=== PATIENT | female | born 1960 | race African-American/Black ===

== ENCOUNTER 2020-09-13 21:46 | Emergency (ER) | payer MEDICARE ==
[~2020-09-13] VITALS: Ht 160 cm; Wt 83.6 kg
[2020-09-13] MEDS ORDERED: IV NORMAL SALINE 1000ML BAG 1,000 ML IV ONE (22:15)
[2020-09-13] MEDS ORDERED: KETOROLAC 15 MG/ML VIAL. IVP ONE (22:30)
--- NOTE | 2020-09-13 23:01 | RAD ---
Single view chest dated 09/13/2020. No comparison available. CLINICAL INDICATION: Cough. FINDINGS: Single upright portable exam performed. Heart and mediastinal contours within normal limits. Lungs ar e clear. No consolidation or pleural effusion. No pneumothorax. IMPRESSION: No acute radiographic abnormality. Electronically signed by: Jacoby Manuel MD (09/13/2020 10:58 PM) [facility]
--- NOTE | 2020-09-13 23:06 | PHYS DOC ---
Past Medical History Past Medical History: Diabetes-Type II, Hypertension Past Surgical History: No Surgical History, Smoking Status: Former Smoker Alcohol Use: Occasionally Drug Use: None, Marijuana General Adult EDM: Chief Complaint: MULTIPLE COMPLAINTS HPI: HPI: Patient is a 59-year-old female who presents to emergency department with complaints of a cough, headache, and dizziness. She states her symptoms began in March after she had COVID-19. She describes the cough is dry and persistent. She has tried several qjcd-hkj-njujwmw medications with no relief. She denies any sputum production, fever or chills, or chest pain. She describes the headache as a bandlike tightness that is worse with stressors. She is currently under a lot of stress to her due to her passing away. She is a former smoker but denies any history of asthma or COPD. Review of Systems: Review of Systems: Constitutional: Denies fever or chills Eyes: Denies redness or eye pain HENT: Admits nasal congestion or sore throat Respiratory: Admits cough, denies shortness of breath Cardiovascular: Denies chest pain or palpitations GI: Denies abdominal pain, nausea, or vomiting : Denies dysuria or hematuria Musculoskeletal: Denies back pain or joint pain Integument: Denies rash or skin lesions Neurologic: Admits dizziness and headache, denies focal weakness or sensory changes Complete systems were reviewed and found to be within normal limits, except as documented in this note. Current Medications: Current Medications Medications (Trade) Dose Ordered Sig/[facility] Start Time Stop Time Status Last Admin Dose Admin Ketorolac Tromethamine (Toradol 15mg Vial) 15 mg 1X ONCE 09/13/20 22:30 09/13/20 22:32 DC Sodium Chloride 1,000 ml @ 1,000 mls/hr 1X ONCE 09/13/20 22:15 09/13/20 23:14 Allergies: Allergies: Allergies Coded Allergies Type Severity Reaction Last Updated Verified No Known Drug Allergies 09/13/20 No Physical Exam: PE: Constitutional: Well developed, well nourished, no acute distress, non-toxic appearance HENT: Normocephalic, atraumatic Eyes: PERRL, EOMI, conjunctiva normal, no discharge Neck: Normal range of motion, no tenderness, supple Lungs & Thorax: No respiratory distress, equal chest rise and fall Abdomen: Soft, no tenderness Skin: Warm, dry, no erythema, no rash Back: No tenderness, no CVA tenderness Extremities: No tenderness, ROM intact, no edema Neurologic: Alert and oriented X 3, normal motor function, normal sensory function, no focal deficits noted Psychologic: Affect normal, judgment normal EKG: EKG: @2310 NSR at 85bpm, NO ST elevation, QRS 78ms, QT/QTc 374/451ms Radiology/Procedures: Radiology/Procedures: [] Course & Med Decision Making: Course & Med Decision Making Patient is a 59-year-old female presenting with cough. Plan to evaluate with chest x-ray and labs and treat her anxiety symptoms with Ativan. Pertinent Labs and Imaging studies reviewed. (See chart for details) Patient stable for discharge with outpatient follow-up with PCP. Discussed findings and plan with patient, who acknowledges understanding and agreement. Dragon Disclaimer: Dragon Disclaimer: This electronic medical record was generated, in whole or in part, using a voice recognition dictation system. Departure Departure Impression: Primary Impression: Dizziness Additional Impressions: Hypokalemia UTI (urinary tract infection) Qualified Codes: N30.00 - Acute cystitis without hematuria Disposition: 01 HOME SELF CARE/HOMELESS Condition: STABLE Referrals: Susanna JEAN MD (PCP) Patient Instructions: Dizziness, Xviv-vu-Pomv, Hypokalemia, Potassium Content of Foods, Urinary Tract Infection, Axfk-oi-Fvzs Additional Instructions: Please call [facility] at to seek help for your mental health and/or drug/alcohol abuse. Scripts Cephalexin (CEPHALEXIN) 500 Mg Tablet 1 TAB PO TID for 7 Days, #21 TAB Prov: SABINA CONNELLY DO 09/14/20 Diazepam (VALIUM) 2 Mg Tablet 2 MG PO TID PRN for DIZZINESS, #10 TAB Prov: SABINA CONNELLY DO 09/14/20 SABINA CONNELLY DO Sep 13, 2020 23:06
[2020-09-13] MEDS ORDERED: diazePAM 2 MG TABLET PO ONE (23:15)
[2020-09-13 23:52] LABS: BASO # 0.1 x10^3/uL (0.0-0.2); BASO % 1 % (0-3); EOS # 0.1 x10^3/uL (0.0-0.7); EOS % 1 % (0-3); HEMATOCRIT 39.3 % (36.0-47.0); HEMOGLOBIN 13.3 g/dL (12.0-15.5); LYMPH # 1.5 x10^3/uL (1.0-4.8); LYMPH % 23 % (24-48); MEAN CORPUSCULAR HEMOGLOBIN 32 pg (25-35); MEAN CORPUSCULAR HGB CONC 34 g/dL (31-37); MEAN CORPUSCULAR VOLUME 93 fL (79-100); MONO # 0.4 x10^3/uL (0.0-1.1); MONO % 6 % (0-9); NEUT # 4.7 x10^3/uL (1.8-7.7); NEUT % 70 % (31-73); PLATELET COUNT 300 x10^3/uL (140-400); RED BLOOD COUNT 4.22 x10^6/uL (3.50-5.40); WHITE BLOOD COUNT 6.8 x10^3/uL (4.0-11.0)
[2020-09-14 00:02] LABS: BILIRUBIN,URINE NEGATIVE (NEG); CLARITY,URINE CLOUDY; COLOR,URINE YELLOW; NITRITE,URINE NEGATIVE (NEG); PROTEIN,URINE NEGATIVE (NEG-TRACE); UROBILINOGEN,URINE 0.2 mg/dL (0.2 mg/dL)
[2020-09-14 00:03] LABS: CALCIUM 9.6 mg/dL (8.5-10.1); CREATININE 0.9 mg/dL (0.6-1.0)
[2020-09-14 00:09] LABS: ALBUMIN 3.8 g/dL (3.4-5.0); ALBUMIN/GLOBULIN RATIO 0.9 (1.0-1.7); MAGNESIUM 2.1 mg/dL (1.8-2.4); TOTAL BILIRUBIN 0.6 mg/dL (0.2-1.0); TOTAL PROTEIN 8.1 g/dL (6.4-8.2)
[2020-09-14 00:11] LABS: BACTERIA,URINE FEW /HPF (0-FEW); RBC,URINE OCC /HPF (0-2)
[2020-09-14 00:16] LABS: CREATINE KINASE 57 U/L (26-192)
[2020-09-14] MEDS ORDERED: POTASSIUM CHLORIDE 20 MEQ TABLET.ER. PO ONE (00:30)
[2020-09-14] MEDS ORDERED: cefTRIAXone IV Push 1 GM VIAL. IVP ONE (00:30)
[2020-09-14 00:57] VITALS: BP 127/70
[2020-09-14] MEDS ORDERED: ONDANSETRON PF 4 MG/2 ML VIAL. IV ONE (01:00)
[2020-09-14] MEDS ORDERED: DIAZ2TAB PO (01:02)
[2020-09-14] MEDS ORDERED: CEPH500T PO (01:02)
--- NOTE | 2020-09-14 02:31 | EKG ---
[facility] [address] [place] [address] Test Date: 2020-09-13 Test Time: 23:10:50 Pat Name: SAMARA RODRIGUEZ Department: Room: Gender: F [employer] Internship: : 1960 Requested By: SABINA CONNELLY Order Number: [id number] Reading MD: Measurements Intervals [place] Rate: 85 P: 54 MD: 154 QRS: 20 QRSD: 78 T: 45 QT: 374 QTc: 451 Interpretive Statements SINUS RHYTHM QRS(T) CONTOUR ABNORMALITY CONSIDER ANTEROLATERAL MYOCARDIAL DAMAGE POSSIBLY ABNORMAL ECG RI6.01 No previous ECG available for comparison
== END 2020-09-14 01:20 | disposition home or self-care (01) ==
LOC: ER 21:46
DX: N30.00 Acute cystitis without hematuria (principal); E87.6 Hypokalemia; R42 Dizziness and giddiness; E11.9 Type 2 diabetes mellitus without complications; I10 Essential (primary) hypertension; Z87.891 Personal history of nicotine dependence
CPT/HCPCS: 36415; 71045; 80053; 81001; 82553; 83735; 84484; 85025; 87086; 93005; 96361; 96374; 96375; 99285; J0696; J1885; J2405; J7030

== ENCOUNTER 2020-11-04 23:01 | Emergency (ER) | payer MEDICARE ==
[~2020-11-04] VITALS: Ht 165.1 cm; Wt 89.0 kg
[~2020-11-04 23:01] MED LIST: CEPH500T PO; DIAZ2TAB PO
--- NOTE | 2020-11-04 23:12 | PHYS DOC ---
Past Medical History Past Medical History: Diabetes-Type II, Hypertension Additional Past Medical Histor: NEUROPATHY Past Surgical History: No Surgical History, Additional Past Surgical Histo: X2 Smoking Status: Former Smoker Alcohol Use: Occasionally Drug Use: None, Marijuana General Adult EDM: Chief Complaint: CHEST PAIN HPI: HPI: Patient is a 60-year-old female who presents due to concerns of abdominal bloating, epigastric fullness for the past 5 hours. She reports her symptoms began when her side gave her a diluted hydrogen peroxide oral solution. She reports some nausea some vomiting after taking bath solution and reports that her son gave her a second dose shortly after the first 1 because he did not know that she had taken the first dose. She reports her symptoms have significantly worsened after the second dose. She reports worsening nausea/vomiting since the second dose and consistently reports "I just do not feel well". She reports no shortness of breath, palpitations, syncopal episodes, episodes of diaphoresis, increased lower extremity edema, or previous cardiac history. She reports she is currently experiencing a posterior and frontal headache, that is somewhat constant in nature without photo or phonophobia. Reports a history of diabetes for which she takes insulin for and hypertension. Denies previous coronary events, denies previous abdominal surgeries, and denies migraine history. Review of Systems: Review of Systems: Fourteen body systems of review of systems have been reviewed. See HPI for pertinent positives and negative responses, other lawrence all other systems are neg ative, non-pertinent or non-contributory Heart Score: C/O Chest Pain: Yes HEART Score for Chest Pain: HEART Score for Chest Pain Response (Comments) Value History Moderately Suspicious 1 Age >45 - < 65 1 Risk Factors 1 or 2 Risk Factors 1 Total 3 Risk Factors: Risk Factors: DM, Current or recent (<one month) smoker, HTN, HLP, family history of CAD, obesity. Risk Scores: Score 0 - 3: 2.5% MACE over next 6 weeks - Discharge Home Score 4 - 6: 20.3% MACE over next 6 weeks - Admit for Clinical Observation Score 7 - 10: 72.7% MACE over next 6 weeks - Early Invasive Strategies Allergies: Allergies: Allergies Coded Allergies Type Severity Reaction Last Updated Verified No Known Drug Allergies 09/13/20 No Physical Exam: PE: Constitutional: Well developed, well nourished, no acute distress, non-toxic appearance. HENT: Normocephalic, atraumatic, bilateral external ears normal, oropharynx moist, no oral exudates, nose normal. Eyes: PERRLA, EOMI, conjunctiva normal, no discharge. Neck: Normal range of motion, no tenderness, supple, no stridor. Cardiovascular: Heart rate regular, sinus rhythm, no murmurs rubs or gallops chest pain is not reproducible to palpation Lungs & Thorax: Bilateral breath sounds clear to auscultation Abdomen: Bowel sounds normal, soft, no tenderness, no masses, no pulsatile masses. Nonsurgical abdomen, no peritoneal signs negative [place]'s negative psoas negative obturator bilaterally negative heel strike bilaterally, no tenderness to palpation of the L abdomen Skin: Warm, dry, no erythema, no rash. Back: No tenderness, no CVA tenderness. Extremities: No tenderness, no cyanosis, no clubbing, ROM intact, no edema. Neurologic: Alert and oriented X 3, grossly normal motor & sensory function, no focal deficits noted. Cranial nerves II through XII grossly intact sensation in the face upper extremity and lower extremity grossly intact normal pqdtls-lz-mwzy testing bilaterally, normal hikt-cz-ftlv testing bilaterally, no signs of cerebellar ataxia, no pronator drift, extraocular movements intact pupils are equally round and reactive bilaterally Psychologic: Affect normal, judgement normal, mood normal. EKG: EKG: EKG ordered and interpreted by myself at 2311 hrs. as sinus rhythm at 86 bpm, unremarkable intervals, no axis deviation, no acute ischemic findings, no STEMI Radiology/Procedures: Radiology/Procedures: [] Course & Med Decision Making: Course & Med Decision Making Patient is a 60-year-old female presenting for concerns due to chest pain. Vitals are within normal limits on exam and physical exam was not significant for any acute or abnormalities. IV fluids, CBC, CMP, lipase, troponin, chest x- ray, Tylenol, aspirin were ordered. Dragon Disclaimer: Dragon Disclaimer: This electronic medical record was generated, in whole or in part, using a voice recognition dictation system. Departure Departure Impression: Primary Impression: Chest pain, unspecified Disposition: HOME / SELF CARE / HOMELESS Condition: IMPROVED Referrals: Susanna JEAN MD (PCP) Patient Instructions: Chest Pain (Nonspecific) Additional Instructions: You were seen for chest pain. Your workup did not show any acute abnormalities today, but does not indicate that you do not have underlying cardiovascular disease. As discussed, you are likely suffering from acid reflux after ingesting pizza earlier this evening. I would advise continued lifestyle changes and avoiding foods high in fat and spice. You do need to follow up with your primary doctor and potentially a aircraft rigging and controls mechanic for further evaluation and treatment. You should return to the ED if you develop worsening chest pain, shortness of breath, fever, abnormal sweating, leg swelling, or any other new or concerning symptoms. FELIX LEY DO Nov 04, 2020 23:12
[2020-11-04 23:43] LABS: HEMATOCRIT 37.1 % (36.0-47.0); HEMOGLOBIN 12.7 g/dL (12.0-15.5); RED BLOOD COUNT 4.08 x10^6/uL (3.50-5.40); RED CELL DISTRIBUTION WIDTH 12.7 % (11.5-14.5); WHITE BLOOD COUNT 6.8 x10^3/uL (4.0-11.0)
[2020-11-04 23:53] LABS: CALCIUM 9.1 mg/dL (8.5-10.1); POTASSIUM 3.8 mmol/L (3.5-5.1)
[2020-11-05] LABS: ALBUMIN 3.5 g/dL (3.4-5.0); ALBUMIN/GLOBULIN RATIO 0.8 (1.0-1.7); TOTAL BILIRUBIN 0.2 mg/dL (0.2-1.0); TOTAL PROTEIN 7.8 g/dL (6.4-8.2)
[2020-11-05] MEDS ORDERED: ACETAMINOPHEN 325 MG TABLET. PO ONE
[2020-11-05] MEDS ORDERED: LIDO:MAALOX 1:1 20 ML SINGLE DOSE. SWSW ONE
[2020-11-05] MEDS ORDERED: ONDANSETRON PF 4 MG/2 ML VIAL. IVP ONE
[2020-11-05] MEDS ORDERED: ASPIRIN CHEWABLE 81 MG TABLET. PO ONE
[2020-11-05] MEDS ORDERED: IV NORMAL SALINE 1000ML BAG 1,000 ML IV ONE
--- NOTE | 2020-11-05 00:07 | RAD ---
XR CHEST 1V Clinical History: Reason: chest pain / Spl. Instructions: / History: Technique: AP view of the chest was obtained at 11/04/2020 11:41 PM. Comparison: September 13, 2020. Findings: The cardiomediastinal silhouette is normal. The pulmonary vasculature is normal. The lungs and pleura l margins are clear. Impression: No evidence of an acute cardiopulmonary process. Electronically signed by: Dennis Nelson III, MD (11/05/2020 12:05 AM) [facility]
--- NOTE | 2020-11-05 00:43 | EKG ---
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
[2020-11-05 01:10] VITALS: BP 141/65
== END 2020-11-05 01:25 | disposition home or self-care (01) ==
LOC: ER 23:01
DX: R07.89 Other chest pain (principal); R11.2 Nausea with vomiting, unspecified; R51.9 Headache, unspecified; E11.40 Type 2 diabetes mellitus with diabetic neuropathy, unspecified; I10 Essential (primary) hypertension; Z87.891 Personal history of nicotine dependence; Z79.4 Long term (current) use of insulin
CPT/HCPCS: 36415; 71045; 80053; 83690; 84484; 85027; 93005; 96361; 96374; 99285; J2405; J7030

== ENCOUNTER 2020-11-28 09:16 | Emergency (ER) | payer MEDICARE ==
[~2020-11-28] VITALS: Ht 157.5 cm; Wt 81.8 kg
[2020-11-28 09:35] VITALS: BP 147/65
[2020-11-28] MEDS ORDERED: POLYETHYLENE GLYCOL 3350 17 GM PACKET. PO ONE (10:00)
[2020-11-28] MEDS ORDERED: DOCUSATE SODIUM 283 MG/5 ML ENEMA. PR ONE (10:00)
[2020-11-28] MEDS ORDERED: SENNOSIDES 8.6 MG TABLET PO PRN (10:00)
--- NOTE | 2020-11-28 10:00 | PHYS DOC ---
Past Medical History Past Medical History: Diabetes-Type II, High Cholesterol, Hypertension, Other Additional Past Medical Histor: NEUROPATHY Past Surgical History: Additional Past Surgical Histo: X2 Smoking Status: Former Smoker Alcohol Use: Occasionally Drug Use: None, Marijuana General Adult EDM: Chief Complaint: CONSTIPATION HPI: HPI: 60-year-old female presents emergency department today with constipation. She reports last bowel movement was on Tuesday. Since then she has not had a bowel movement. She has had a few C-sections. She denies abdominal distention or abdominal pain. She denies vomiting or nausea. She denies chest pain or shortness of breath. She has diabetes mellitus and takes insulin for this. Onset today. Location GI tract. Duration constant. No alleviating factors. She endorses flatus Review of systems negative for chest pain shortness of breath vomiting fevers chills. All other review of systems negative Heart Score: C/O Chest Pain: No Risk Factors: Risk Factors: DM, Current or recent (<one month) smoker, HTN, HLP, family history of CAD, obesity. Risk Scores: Score 0 - 3: 2.5% MACE over next 6 weeks - Discharge Home Score 4 - 6: 20.3% MACE over next 6 weeks - Admit for Clinical Observation Score 7 - 10: 72.7% MACE over next 6 weeks - Early Invasive Strategies Allergies: Allergies: Allergies Coded Allergies Type Severity Reaction Last Updated Verified No Known Drug Allergies 09/13/20 No Physical Exam: PE: Constitutional: Well developed, well nourished, no acute distress, non-toxic appearance. [] HENT: Normocephalic, atraumatic, bilateral external ears normal, oropharynx moist, no oral exudates, nose normal. [] Eyes: PERRLA, EOMI, conjunctiva normal, no discharge. [] Neck: Normal range of motion, no tenderness, supple, no stridor. [] Cardiovascular:Heart rate regular rhythm, no murmur [] Lungs & Thorax: Bilateral breath sounds clear to auscultation [] Abdomen: Bowel sounds normal, soft, no tenderness, no masses, no pulsatile masses. Nondistended no rebound tenderness or guarding. Bowel sounds present and normal. Negative McBurney's point. Negative Colorado sign. Skin: Warm, dry, no erythema, no rash. [] Back: No tenderness, no CVA tenderness. [] Extremities: No tenderness, no cyanosis, no clubbing, ROM intact, no edema. [] Neurologic: Alert and oriented X 3, normal motor function, normal sensory function, no focal deficits noted. [] Psychologic: Affect normal, judgement normal, mood normal. [] Current Patient Data: Vital Signs: Vital Signs Date Time Temp Pulse Resp B/P (MAP) Pulse Ox O2 Delivery O2 Flow Rate FiO2 11/28/20 09:35 98.0 88 17 147/65 (92) 100 Room Air 98.0 EKG: EKG: [] Radiology/Procedures: Radiology/Procedures: [] Course & Med Decision Making: Course & Med Decision Making Pertinent Labs and Imaging studies reviewed. (See chart for details) [] Work-up unremarkable. Repeat abdominal exam shows a soft nontender abdomen without rebound tenderness or guarding. Patient is well-appearing without any distress. We discussed the patient's findings. We will discharge patient to follow-up with PCP in 1 to 2 days. The patient has been examined and was not found to have an emergency medical condition. The patient was then discharged home in stable condition to follow up with their primary care physician over the next 1-2 days. They were to return if their symptoms worsened or if they were concerned for any reason. They were also instructed to return to the emergency department if they were unable to get the recommended and appropriate follow-up. Hmdo-au-cvns discharge instructions and return precautions were given. Patient's questions were answered to their satisfaction. Patient is comfortable with plan. Soniyaon Disclaimer: Dragmaria luz Disclaimer: This electronic medical record was generated, in whole or in part, using a voice recognition dictation system. Departure Departure Impression: Primary Impression: Constipation Disposition: 01 HOME / SELF CARE / HOMELESS Condition: STABLE Referrals: Susanna JEAN MD (PCP) Patient Instructions: Constipation, Adult Additional Instructions: EMERGENCY DEPARTMENT GENERAL DISCHARGE INSTRUCTIONS Follow-up with your primary physician in 1 to 2 days or urgent care within 1 to 2 days if your primary doctor is not open on the weekend. Return to the emergency department if you have any new or concerning findings. Thank you for coming to [facility] Emergency Department (ED) today and trusting us with you care. We trust that you had a positive experience in our Emergency Department. If you wish to speak to the department management, you may call the Director at [phone]. Follow up is important in emergency/acute care visits. This condition should be evaluated by your primary care physician and any necessary consulting services for continued management within a few days (1-2) after discharge. Return to the emergency department if you have any new or concerning symptoms including but not limited to fever, chills, nausea, vomiting, intractable pain, any new rashes, chest pain, shortness of breath, uncontrolled bleeding, difficulty breathing, and/or vision loss. 1. Do you have a private Doctor? If you do not have a private doctor, please ask for a resource list of physicians or clinics that may be able to assist you with follow up care. 2. If a lab test or culture has been done and does not come back immediately, your results will be reviewed and you will be notified if you need a change in treatment. 3. Your care today has been supervised by a physician who is specially trained in emergency care. Many problems require more than one evaluation for a complete diagnosis and treatment. We recommend that you schedule your follow up appointment as recommended to ensure complete treatment of you illness or injury. If you are unable to obtain follow up care and continue to have a problem, or if your condition worsens, we recommend that you return to the ED. 4. We are not able to safely determine your condition over the phone nor are we able to give sound medical advice over the phone. For these safety reasons, if you call for medical advice we will ask you to come to the ED for further evaluation. IF YOUR SYMPTOMS WORSEN OR NEW SYMPTOMS DEVELOP, OR YOU HAVE CONCERNS ABOUT YOUR CONDITION; OR IF YOUR CONDITION WORSENS WHILE YOU ARE WAITING FOR YOUR FOLLOW UP APPOINTMENT; EITHER CONTACT YOUR PRIMARY CARE DOCTOR, THE PHYSICIAN WHOSE NAME AND NUMBER YOU WERE GIVEN, OR RETURN TO THE ED IMMEDIATELY. NICOLE CURTIS MD November 28, 2020 10:00
[2020-11-28 10:55] LABS: BASO % 1 % (0-3); EOS # 0.1 x10^3/uL (0.0-0.7); EOS % 1 % (0-3); HEMATOCRIT 38.5 % (36.0-47.0); HEMOGLOBIN 13.2 g/dL (12.0-15.5); LYMPH # 1.4 x10^3/uL (1.0-4.8); LYMPH % 23 % (24-48); MEAN CORPUSCULAR HEMOGLOBIN 31 pg (25-35); MEAN CORPUSCULAR HGB CONC 34 g/dL (31-37); MEAN CORPUSCULAR VOLUME 92 fL (79-100); MONO # 0.3 x10^3/uL (0.0-1.1); MONO % 6 % (0-9); NEUT # 4.2 x10^3/uL (1.8-7.7); NEUT % 69 % (31-73); PLATELET COUNT 332 x10^3/uL (140-400); RED CELL DISTRIBUTION WIDTH 12.5 % (11.5-14.5)
[2020-11-28 11:01] LABS: CALCIUM 9.4 mg/dL (8.5-10.1); CREATININE 0.9 mg/dL (0.6-1.0); GFR 76.8; POTASSIUM 3.6 mmol/L (3.5-5.1)
[2020-11-28 11:07] LABS: ALBUMIN 4.1 g/dL (3.4-5.0); TOTAL BILIRUBIN 0.5 mg/dL (0.2-1.0); TOTAL PROTEIN 8.1 g/dL (6.4-8.2)
[2020-11-29] MEDS ORDERED: DOCUSATE SODIUM 100 MG CAPSULE. PO SCH (09:00)
== END 2020-11-28 12:10 | disposition home or self-care (01) ==
LOC: ER 09:16
DX: K59.00 Constipation, unspecified (principal); E78.00 Pure hypercholesterolemia, unspecified; I10 Essential (primary) hypertension; E11.40 Type 2 diabetes mellitus with diabetic neuropathy, unspecified; Z98.890 Other specified postprocedural states
CPT/HCPCS: 36415; 80053; 85025; 99284

== ENCOUNTER 2020-12-02 21:37 | Emergency (ER) | payer MEDICARE ==
[~2020-12-02] VITALS: Ht 160 cm; Wt 81.8 kg
--- NOTE | 2020-12-02 22:18 | PHYS DOC ---
Past Medical History Past Medical History: Diabetes-Type II, High Cholesterol, Hypertension, Other Additional Past Medical Histor: NEUROPATHY Past Surgical History: Additional Past Surgical Histo: X2 Smoking Status: Former Smoker Alcohol Use: Occasionally Drug Use: None, Marijuana General Adult EDM: Chief Complaint: MULTIPLE COMPLAINTS HPI: HPI: Patient is a 60 year old [f__sex] who presents with [] Review of Systems: Review of Systems: Fourteen body systems of review of systems have been reviewed. See HPI for pertinent positives and negative responses, other lawrence all other systems are neg ative, non-pertinent or non-contributory Heart Score: Risk Factors: Risk Factors: DM, Current or recent (<one month) smoker, HTN, HLP, family history of CAD, obesity. Risk Scores: Score 0 - 3: 2.5% MACE over next 6 weeks - Discharge Home Score 4 - 6: 20.3% MACE over next 6 weeks - Admit for Clinical Observation Score 7 - 10: 72.7% MACE over next 6 weeks - Early Invasive Strategies Allergies: Allergies: Allergies Coded Allergies Type Severity Reaction Last Updated Verified No Known Drug Allergies 09/13/20 No Physical Exam: PE: Constitutional: Well developed, well nourished, no acute distress, non-toxic appearance. HENT: Normocephalic, atraumatic, bilateral external ears normal, oropharynx moist, no oral exudates, nose normal. Eyes: PERRLA, EOMI, conjunctiva normal, no discharge. Neck: Normal range of motion, no tenderness, supple, no stridor. Cardiovascular: Heart rate regular, sinus rhythm, no murmurs rubs or gallops Lungs & Thorax: Bilateral breath sounds clear to auscultation Abdomen: Bowel sounds normal, soft, no tenderness, no masses, no pulsatile masses. Nonsurgical abdomen, no peritoneal signs Skin: Warm, dry, no erythema, no rash. Back: No tenderness, no CVA tenderness. Extremities: No tenderness, no cyanosis, no clubbing, ROM intact, no edema. Neurologic: Alert and oriented X 3, grossly normal motor & sensory function, no focal deficits noted. Psychologic: Affect normal, judgement normal, mood normal. Current Patient Data: Labs: Laboratory Tests Test 12/02/20 21:56 12/02/20 22:50 Glucose (Fingerstick) 177 mg/dL White Blood Count 6.5 x10^3/uL Red Blood Count 4.02 x10^6/uL Hemoglobin 12.4 g/dL Hematocrit 36.1 % Mean Corpuscular Volume 90 fL Mean Corpuscular Hemoglobin 31 pg Mean Corpuscular Hemoglobin Concent 35 g/dL Red Cell Distribution Width 12.5 % Platelet Count 322 x10^3/uL Neutrophils (%) (Auto) 64 % Lymphocytes (%) (Auto) 27 % Monocytes (%) (Auto) 7 % Eosinophils (%) (Auto) 1 % Basophils (%) (Auto) 1 % Neutrophils # (Auto) 4.2 x10^3/uL Lymphocytes # (Auto) 1.8 x10^3/uL Monocytes # (Auto) 0.5 x10^3/uL Eosinophils # (Auto) 0.1 x10^3/uL Basophils # (Auto) 0.0 x10^3/uL Sodium Level 135 mmol/L Potassium Level 3.6 mmol/L Chloride Level 96 mmol/L Carbon Dioxide Level 29 mmol/L Anion Gap 10 Blood Urea Nitrogen 17 mg/dL Creatinine 1.1 mg/dL Estimated GFR (Cockcroft-Gault) 60.9 Glucose Level 162 mg/dL Calcium Level 9.2 mg/dL Troponin I Quantitative < 0.017 ng/mL Vital Signs: Vital Signs Date Time Temp Pulse Resp B/P (MAP) Pulse Ox O2 Delivery O2 Flow Rate FiO2 12/02/20 21:50 98.6 94 22 120/67 (84) 100 Room Air 98.6 EKG: EKG: EKG ordered and interpreted by myself at 2242 hrs. as sinus rhythm at 83 bpm, unremarkable intervals, no axis deviation, no acute ischemic findings, no STEMI Radiology/Procedures: Radiology/Procedures: XR CHEST 1V Clinical Indication: Reason: COUGH Comparison: AP chest November 04, 2020. Findings: The cardiomediastinal silhouette is normal. Lungs are clear. There is no pneumothorax. No pleural effusion is appreciated. No acute bone abnormality. There is degenerative endplate spurring of the thoracic spine. IMPRESSION: No acute cardiopulmonary process. Electronically signed by: Donnell Interiano MD (12/02/2020 10:50 PM) [facility] //////////////////////////// CT HEAD WITHOUT CONTRAST History: DIZZINESS Comparison: None. Procedure: Axial images are obtained of the head from the skull base through the vertex without IV contrast. Findings: The ventricles and sulci are normal for the patient's age. No mass-effect, midline shift, hemorrhage, extra-axial fluid collection, or obvious acute infarction is identified. Basilar cisterns are patent. Bone windows demonstrate no acute calvarial abnormality. The visualized paranasal sinuses are clear. Mastoid air cells are well aerated. IMPRESSION: No acute intracranial abnormality. Electronically signed by: Donnell Interiano MD (12/02/2020 11:02 PM) [facility] Course & Med Decision Making: Course & Med Decision Making Pertinent Labs and Imaging studies reviewed. (See chart for details) [] Dragon Disclaimer: Dragon Disclaimer: This electronic medical record was generated, in whole or in part, using a voice recognition dictation system. Departure Departure Impression: Primary Impression: Dizziness Additional Impressions: Cough Type 2 diabetes mellitus Grief Disposition: HOME / SELF CARE / HOMELESS Condition: STABLE Referrals: Susanna JEAN MD (PCP) Additional Instructions: As discussed prior to ER departure, your physical exam and comprehensive diagnostic ER work-up was nonconcerning for any emergent or surgical issues. As discussed, your complaints are better suited to be evaluated in the outpatient setting with your primary care physician and other specialist as deemed necessary. Please contact your primary care physician immediately in the morning to review ER visit today and discuss next steps of care. If any concerning signs or symptoms present prior to outpatient follow-up please do not hesitate to come back for repeat evaluation. It was a pleasure to take care of you and I wish you the best going forward FELIX LEY DO December 02, 2020 22:18
--- NOTE | 2020-12-02 22:53 | RAD ---
XR CHEST 1V Clinical Indication: Reason: COUGH Comparison: AP chest November 04, 2020. Findings: The cardiomediastinal silhouette is normal. Lungs are clear. There is no pneumothorax. No pleural eff usion is appreciated. No acute bone abnormality. There is degenerative endplate spurring of the thora cic spine. IMPRESSION: No acute cardiopulmonary process. Electronically signed by: Donnell Interiano MD (12/02/2020 10:50 PM) [facility]
[2020-12-02 23:01] LABS: BASO % 1 % (0-3); EOS # 0.1 x10^3/uL (0.0-0.7); EOS % 1 % (0-3); HEMATOCRIT 36.1 % (36.0-47.0); HEMOGLOBIN 12.4 g/dL (12.0-15.5); LYMPH # 1.8 x10^3/uL (1.0-4.8); LYMPH % 27 % (24-48); MEAN CORPUSCULAR HEMOGLOBIN 31 pg (25-35); MEAN CORPUSCULAR HGB CONC 35 g/dL (31-37); MEAN CORPUSCULAR VOLUME 90 fL (79-100); MONO # 0.5 x10^3/uL (0.0-1.1); MONO % 7 % (0-9); NEUT # 4.2 x10^3/uL (1.8-7.7); NEUT % 64 % (31-73); PLATELET COUNT 322 x10^3/uL (140-400); RED BLOOD COUNT 4.02 x10^6/uL (3.50-5.40); RED CELL DISTRIBUTION WIDTH 12.5 % (11.5-14.5); WHITE BLOOD COUNT 6.5 x10^3/uL (4.0-11.0)
--- NOTE | 2020-12-02 23:04 | RAD ---
PQRS Compliance Statement: One or more of the following individualized dose reduction techniques were utilized for this examinat ion: 1. Automated exposure control 2. Adjustment of the mA and/or kV according to patient size 3. Use of iterative reconstruction technique CT HEAD WITHOUT CONTRAST History: DIZZINESS Comparison: None. Procedure: Axial images are obtained of the head from the skull base through the vertex without IV co ntrast. Findings: The ventricles and sulci are normal for the patient's age. No mass-effect, midline shift, hemorrhage, extra-axial fluid collection, or obvious acute infarction is identified. Basilar cisterns are patent. Bone windows demonstrate no acute calvarial abnormality. The visualized paranasal sinuses are clear. Mastoid air cells are well aerated. IMPRESSION: No acute intracranial abnormality. Electronically signed by: Donnell Interiano MD (12/02/2020 11:02 PM) [facility]
[2020-12-02 23:12] LABS: CALCIUM 9.2 mg/dL (8.5-10.1); CREATININE 1.1 mg/dL (0.6-1.0); GFR 60.9; POTASSIUM 3.6 mmol/L (3.5-5.1)
[2020-12-02 23:51] VITALS: BP 135/61
--- NOTE | 2020-12-03 08:22 | EKG ---
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
== END 2020-12-03 00:01 | disposition home or self-care (01) ==
LOC: ER 21:37
DX: R42 Dizziness and giddiness (principal); R05 Cough; E11.40 Type 2 diabetes mellitus with diabetic neuropathy, unspecified; F43.21 Adjustment disorder with depressed mood; E78.00 Pure hypercholesterolemia, unspecified; I10 Essential (primary) hypertension; Z87.891 Personal history of nicotine dependence
CPT/HCPCS: 36415; 70450; 71045; 80048; 82962; 84484; 85025; 93005; 99285-25

== ENCOUNTER 2021-01-19 13:00 | Emergency (ER) | payer MEDICARE ==
[~2021-01-19] VITALS: Ht 160 cm; Wt 81.8 kg
[2021-01-19] MEDS ORDERED: IV NORMAL SALINE 1000ML BAG 1,000 ML IV SCH (15:45)
[2021-01-19] MEDS ORDERED: MECLIZINE HCL 12.5 MG TABLET. PO ONE (15:45)
[2021-01-19 15:56] LABS: BASO % 1 % (0-3); EOS # 0.1 x10^3/uL (0.0-0.7); EOS % 2 % (0-3); HEMATOCRIT 35.5 % (36.0-47.0); HEMOGLOBIN 11.8 g/dL (12.0-15.5); LYMPH # 1.5 x10^3/uL (1.0-4.8); LYMPH % 26 % (24-48); MEAN CORPUSCULAR HEMOGLOBIN 31 pg (25-35); MEAN CORPUSCULAR HGB CONC 33 g/dL (31-37); MEAN CORPUSCULAR VOLUME 93 fL (79-100); MONO # 0.3 x10^3/uL (0.0-1.1); MONO % 6 % (0-9); NEUT # 3.7 x10^3/uL (1.8-7.7); NEUT % 66 % (31-73); PLATELET COUNT 312 x10^3/uL (140-400); RED BLOOD COUNT 3.84 x10^6/uL (3.50-5.40); RED CELL DISTRIBUTION WIDTH 13.3 % (11.5-14.5); WHITE BLOOD COUNT 5.6 x10^3/uL (4.0-11.0)
[2021-01-19 15:57] LABS: BILIRUBIN,URINE NEGATIVE (NEG); CLARITY,URINE CLEAR; COLOR,URINE YELLOW; NITRITE,URINE NEGATIVE (NEG); PH,URINE 5.5 (<5.0-8.0); PROTEIN,URINE NEGATIVE (NEG-TRACE); UROBILINOGEN,URINE 0.2 mg/dL (0.2 mg/dL)
[2021-01-19 16:06] LABS: CALCIUM 8.8 mg/dL (8.5-10.1); POTASSIUM 3.7 mmol/L (3.5-5.1)
[2021-01-19 16:10] LABS: BACTERIA,URINE MODERATE /HPF (0-FEW)
[2021-01-19 16:11] LABS: RBC,URINE OCC /HPF (0-2)
[2021-01-19 16:11] LABS: ALBUMIN 3.4 g/dL (3.4-5.0); ALBUMIN/GLOBULIN RATIO 0.9 (1.0-1.7); MAGNESIUM 1.8 mg/dL (1.8-2.4); TOTAL BILIRUBIN 0.2 mg/dL (0.2-1.0); TOTAL PROTEIN 7.1 g/dL (6.4-8.2)
[2021-01-19 16:24] LABS: CREATINE KINASE 59 U/L (26-192)
--- NOTE | 2021-01-19 16:30 | RAD ---
Single view of the chest. 01/19/2021 3:54 PM Indication: Reason: dizziness / Spl. Instructions: / History: Comparison: Chest radiograph December 02, 2020 Findings: There is no focal consolidation. There is no pleural effusion or pneumothorax. The cardiome diastinal silhouette and pulmonary vasculature are within normal limits. No acute osseous abnormaliti es are seen. Impression: No evidence of acute cardiopulmonary process. Electronically signed by: Jacobo Jorge MD (01/19/2021 4:27 PM) [id number]
--- NOTE | 2021-01-19 16:33 | RAD ---
EXAM: CT HEAD WITHOUT CONTRAST. HISTORY: Dizziness. TECHNIQUE: Computed tomography of the head was performed without intravenous contrast. One or more of the following individualized dose reduction techniques were utilized for this examination: 1. Automated exposure control. 2. Adjustment of the mA and/or kV according to patient size. 3. Use of iterative reconstruction technique. COMPARISON: 12/02/2020. FINDINGS: There is no intracranial hemorrhage. De La Cruz-white differentiation is preserved. The ventricle s are normal in size and position. The visualized paranasal sinuses appear clear. The orbits are unremarkable. The temporal bones are un remarkable. The calvarium reveals no suspicious lesions. IMPRESSION: 1. No acute intracranial findings. Electronically signed by: Germán Angulo MD (01/19/2021 4:30 PM) [facility]
[2021-01-19] MEDS ORDERED: cefTRIAXone IV Push 1 GM VIAL. IVP ONE (17:15)
[2021-01-19 17:24] VITALS: BP 160/72
[2021-01-19 17:26] LABS: PROTHROMBIN TIME PATIENT 11.9 SEC (11.7-14.0)
[2021-01-19] MEDS ORDERED: CEPH500T PO (18:29)
--- NOTE | 2021-01-19 18:29 | PHYS DOC ---
Past Medical History Past Medical History: Diabetes-Type II, High Cholesterol, Hypertension, Other Additional Past Medical Histor: NEUROPATHY Past Surgical History: Additional Past Surgical Histo: X2 Smoking Status: Former Smoker Alcohol Use: Occasionally Drug Use: None, Marijuana General Adult EDM: Chief Complaint: DIZZY/LIGHT HEADED HPI: HPI: Patient is a 60 year old female with history of diabetes type 2, hypertension, high cholesterol, who presents to the ED today complaining of intermittent episodes of dizziness, symptoms have been going on since Tuesday. She states she saw her primary care doctor on Tuesday and her blood pressure was 100/87, she states they removed her from her blood pressure medicine. Patient states symptoms are worse when she is up and moving. She states in July she lost her and has been sort of homeless since then. She states she has been living with several family members. She states she does not have a true place of her own. She states she is under a lot of stress from this. She states she does not want to talk to anyone about it. She states she has not been sleeping well because every night she has to sleep at somebody sells house. Patient denies any suicidal or homicidal ideations. Review of Systems: Review of Systems: Plan. Constitutional: Denies fever or chills. [] Eyes: Denies change in visual acuity. [] HENT: Denies nasal congestion or sore throat. [] Respiratory: Denies cough or shortness of breath. [] Cardiovascular: Denies chest pain or edema. [] GI: Denies abdominal pain, nausea, vomiting, bloody stools or diarrhea. [] : Denies dysuria. [] Musculoskeletal: Denies back pain or joint pain. [] Integument: Denies rash. [] Neurologic: Reports dizziness. Denies headache, focal weakness or sensory changes. [] Endocrine: Denies polyuria or polydipsia. [] Lymphatic: Denies swollen glands. [] Psychiatric: Reports stress Heart Score: C/O Chest Pain: N/A Risk Factors: Risk Factors: DM, Current or recent (<one month) smoker, HTN, HLP, family history of CAD, obesity. Risk Scores: Score 0 - 3: 2.5% MACE over next 6 weeks - Discharge Home Score 4 - 6: 20.3% MACE over next 6 weeks - Admit for Clinical Observation Score 7 - 10: 72.7% MACE over next 6 weeks - Early Invasive Strategies Current Medications: Current Medications Medications (Trade) Dose Ordered Sig/Rahel Start Time Stop Time Status Last Admin Dose Admin Ceftriaxone Sodium (Rocephin) 1 gm 1X ONCE 01/19/21 17:15 01/19/21 17:16 DC Meclizine HCl (Antivert) 12.5 mg 1X ONCE 01/19/21 15:45 01/19/21 15:54 DC 01/19/21 15:45 12.5 MG Sodium Chloride 1,000 ml @ 100 mls/hr Q10H 01/19/21 15:45 01/20/21 01:44 01/19/21 16:42 100 MLS/HR Allergies: Allergies: Allergies Coded Allergies Type Severity Reaction Last Updated Verified No Known Drug Allergies 09/13/20 No Physical Exam: PE: Constitutional: Well developed, well nourished, no acute distress, non-toxic appearance. [] HENT: Normocephalic, atraumatic, bilateral external ears normal, oropharynx moist, no oral exudates, nose normal. [] Eyes: PERRLA, EOMI, conjunctiva normal, no discharge. [] Neck: Normal range of motion, no tenderness, supple, no stridor. [] Cardiovascular:Heart rate regular rhythm, no murmur [] Lungs & Thorax: Bilateral breath sounds clear to auscultation [] Abdomen: Bowel sounds normal, soft, no tenderness, no masses, no pulsatile masses. [] Skin: Warm, dry, no erythema, no rash. [] Back: No tenderness, no CVA tenderness. [] Extremities: No tenderness, no cyanosis, no clubbing, ROM intact, no edema. [] Neurologic: Alert and oriented X 3, normal motor function, normal sensory function, no focal deficits noted. Cranial nerves II through XII intact Psychologic: Affect normal, judgement normal, mood normal. [] Current Patient Data: Labs: Laboratory Tests Test 01/19/21 14:50 01/19/21 15:10 01/19/21 15:55 01/19/21 17:00 Urine Collection Type Unknown Urine Color Yellow Urine Clarity Clear Urine pH 5.5 (<5.0-8.0) Urine Specific [place] 1.010 (1.000-1.030) Urine Protein Negative mg/dL (NEG-TRACE) Urine Glucose (UA) 500 mg/dL (NEG) Urine Ketones (Stick) Negative mg/dL (NEG) Urine Blood Negative (NEG) Urine Nitrite Negative (NEG) Urine Bilirubin Negative (NEG) Urine Urobilinogen Dipstick 0.2 mg/dL (0.2 mg/dL) Urine Leukocyte Esterase Moderate (NEG) Urine RBC Occ /HPF (0-2) Urine WBC 5-10 /HPF (0-4) Urine Squamous Epithelial Cells Mod /LPF Urine Bacteria Moderate /HPF (0-FEW) Urine Mucus Mod /LPF White Blood Count 5.6 x10^3/uL (4.0-11.0) Red Blood Count 3.84 x10^6/uL (3.50-5.40) Hemoglobin 11.8 g/dL (12.0-15.5) L Hematocrit 35.5 % (36.0-47.0) L Mean Corpuscular Volume 93 fL (79-100) Mean Corpuscular Hemoglobin 31 pg (25-35) Mean Corpuscular Hemoglobin Concent 33 g/dL (31-37) Red Cell Distribution Width 13.3 % (11.5-14.5) Platelet Count 312 x10^3/uL (140-400) Neutrophils (%) (Auto) 66 % (31-73) Lymphocytes (%) (Auto) 26 % (24-48) Monocytes (%) (Auto) 6 % (0-9) Eosinophils (%) (Auto) 2 % (0-3) Basophils (%) (Auto) 1 % (0-3) Neutrophils # (Auto) 3.7 x10^3/uL (1.8-7.7) Lymphocytes # (Auto) 1.5 x10^3/uL (1.0-4.8) Monocytes # (Auto) 0.3 x10^3/uL (0.0-1.1) Eosinophils # (Auto) 0.1 x10^3/uL (0.0-0.7) Basophils # (Auto) 0.0 x10^3/uL (0.0-0.2) Sodium Level 140 mmol/L (136-145) Potassium Level 3.7 mmol/L (3.5-5.1) Chloride Level 103 mmol/L (98-107) Carbon Dioxide Level 28 mmol/L (21-32) Anion Gap 9 (6-14) Blood Urea Nitrogen 9 mg/dL (7-20) Creatinine 1.0 mg/dL (0.6-1.0) Estimated GFR (Cockcroft-Gault) 68.0 BUN/Creatinine Ratio 9 (6-20) Glucose Level 248 mg/dL (70-99) H Calcium Level 8.8 mg/dL (8.5-10.1) Magnesium Level 1.8 mg/dL (1.8-2.4) Total Bilirubin 0.2 mg/dL (0.2-1.0) Aspartate Amino Transferase (AST) 9 U/L (15-37) L Alanine Aminotransferase (ALT) 16 U/L (14-59) Alkaline Phosphatase 74 U/L (46-116) Creatine Kinase 59 U/L (26-192) Creatine Kinase MB (Mass) < 0.5 ng/mL (0.0-3.6) Creatine Kinase MB Relative Index % (0-4) Troponin I Quantitative < 0.017 ng/mL (0.000-0.055) Total Protein 7.1 g/dL (6.4-8.2) Albumin 3.4 g/dL (3.4-5.0) Albumin/Globulin Ratio 0.9 (1.0-1.7) L Thyroid Stimulating Hormone (TSH) 0.413 uIU/mL (0.358-3.74) Glucose (Fingerstick) 167 mg/dL (70-99) H Prothrombin Time 11.9 SEC (11.7-14.0) Prothrombin Time INR 0.9 (0.8-1.1) Activated Partial Thromboplast Time 25 SEC (24-38) Laboratory Tests 01/19/21 15:10 Laboratory Tests 01/19/21 15:10 Vital Signs: Vital Signs Date Time Temp Pulse Resp B/P (MAP) Pulse Ox O2 Delivery O2 Flow Rate FiO2 01/19/21 13:47 97.5 92 22 147/70 (95) 100 Room Air 97.5 EKG: EK interpreted by sinus rhythm heart rate 83 no STEMI [] Radiology/Procedures: Radiology/Procedures: []PROCEDURE: CT HEAD WO CONTRAST EXAM: CT HEAD WITHOUT CONTRAST. HISTORY: Dizziness. TECHNIQUE: Computed tomography of the head was performed without intravenous contrast. One or more of the following individualized dose reduction techniques were utilized for this examination: 1. Automated exposure control. 2. Adjustment of the mA and/or kV according to patient size. 3. Use of iterative reconstruction technique. COMPARISON: 12/02/2020. FINDINGS: There is no intracranial hemorrhage. De La Cruz-white differentiation is pr eserved. The ventricles are normal in size and position. The visualized paranasal sinuses appear clear. The orbits are unremarkable. The temporal bones are unremarkable. The calvarium reveals no suspicious lesions. IMPRESSION: 1. No acute intracranial findings. Electronically signed by: Germán Angulo MD (01/19/2021 4:30 PM) [facility] DICTATED and SIGNED BY: TOMMY ANGULO MD DATE: 01/19/[id number] 0 PROCEDURE: PORTABLE CHEST 1V Single view of the chest. 01/19/2021 3:54 PM Indication: Reason: dizziness / Spl. Instructions: / History: Comparison: Chest radiograph December 02, 2020 Findings: There is no focal consolidation. There is no pleural effusion or pneumothorax. The cardiomediastinal silhouette and pulmonary vasculature are within normal limits. No acute osseous abnormalities are seen. Impression: No evidence of acute cardiopulmonary process. Electronically signed by: Jacobo Barreto MD (01/19/2021 4:27 PM) [id number] DICTATED and SIGNED BY: JACOBO BARRETO MD DATE: 01/19/[id number] 0 Course & Med Decision Making: Course & Med Decision Making Pertinent Labs and Imaging studies reviewed. (See chart for details) This is a 60-year-old female patient presenting to the ED today with complaints of dizziness on and off since Tuesday. Patient was seen by the PCP on Tuesday had a blood pressure of 100/87 was taken off of blood pressure medicine. She still has dizziness especially when she is ambulating. Her stroke scale is negative. Blood pressure in the ED 147/70. Patient is still mourning the passing of the in July though she refuses help. CT of the head is negative, chest x-ray is negative, CBC with hemoglobin of 11.8, hematocrit 35.5, patient states she takes iron tablets. CMP with glucose of 248, patient has history of diabetes type 2 and had a cookie in the ED prior to her blood draw. Urine positive for UTI, will discharge her on cephalexin. Patient has good follow-up. She was up in the ED and ambulating with no distress. I recommended she follows up with her own primary care doctor. Also provided neurologist. Graciela Disclaimer: Graciela Disclaimer: This electronic medical record was generated, in whole or in part, using a voice recognition dictation system. NIHSS Stroke Scale NIH Stroke Scale: NIH Stroke Scale Response (Comments) Value Level of Consciousness: 0 Alert/Responsive 0 LOC Questions: 0 Answers both correctly 0 LOC Commands: 0 Performs both tasks 0 Best Gaze: 0 Normal 0 Visual: 0 No visual loss 0 Facial Palsy: 0 Normal, symmetrical 0 Motor - Left Arm 0 No drift 0 Motor - Right Arm 0 No drift 0 Motor - Left Leg 0 No drift 0 Motor: Right Leg 0 No drift 0 Limb Ataxia: 0 Absent 0 Sensory: 0 No loss 0 Best Language: 0 Normal 0 Dysathria: 0 Normal (Somebody to talk to about the loss of the) 0 Extinction and Inattention: 0 Normal ( who also in this hospita l) 0 Total 0 Departure Departure Impression: Primary Impression: Dizziness Additional Impressions: Hyperglycemia UTI (urinary tract infection) Qualified Codes: N39.0 - Urinary tract infection, site not specified Anemia Qualified Codes: D64.9 - Anemia, unspecified Disposition: 01 HOME / SELF CARE / HOMELESS Condition: STABLE Referrals: Susanna JEAN MD (PCP) follow up in 1-2 weeks Patient Instructions: Dizziness, [id number], Urinary Tract Infection Additional Instructions: You were evaluated in the emergency room for dizziness. Please follow-up with your primary care doctor in the course of this week. You also have urinary tract infection, ensure you complete your antibiotics. Push fluids. Scripts Cephalexin (CEPHALEXIN) 500 Mg Tablet 1 TAB PO BID, #14 TAB Prov: BRYAN HERNANDEZ APRN 01/19/21 BRYAN HERNANDEZ APRN Jan 19, 2021 18:29
--- NOTE | 2021-01-19 18:30 | EKG ---
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
== END 2021-01-19 19:03 | disposition home or self-care (01) ==
LOC: ER 13:00
DX: N39.0 Urinary tract infection, site not specified (principal); D64.9 Anemia, unspecified; E11.65 Type 2 diabetes mellitus with hyperglycemia; R42 Dizziness and giddiness; I10 Essential (primary) hypertension; E78.00 Pure hypercholesterolemia, unspecified; E11.40 Type 2 diabetes mellitus with diabetic neuropathy, unspecified
CPT/HCPCS: 36415; 70450; 71045; 80053; 81001; 82553; 82962; 83735; 84443; 84484; 85025; 85610; 85730; 87086; 93005; 96361; 96374; 99285; J0696; J7030; J8597